=== PATIENT | male | born 2000 | race Caucasian/White ===

== ENCOUNTER → 2022-10-24 | Outpatient (CLI) | payer OTHER, SELFPAY ==
[2022-10-24 17:43] LABS: NATERA MAILED SPECIMEN
== END | disposition home or self-care (01) ==
LOC: LAB 16:36
PROVIDERS: Referring Provider Registered Nurse; Visit Provider Registered Nurse
DX: Z31.440 Encounter of male for testing for genetic disease carrier status for procreative management (principal)
CPT/HCPCS: 36415